=== PATIENT | female | born 1935 | race Caucasian/White ===

== ENCOUNTER 2019-06-14 04:51 | Emergency (ER) | payer MEDICARE, OTHER ==
[~2019-06-14] VITALS: Ht 162 cm; Wt 92.0 kg
[2019-06-14] MEDS ORDERED: NS IV 1000 ML 1,000 ML IV SCH (05:15)
--- NOTE | 2019-06-14 05:20 | ED General ---
General Chief Complaint: Dizziness/Syncope Stated Complaint: DIZZINESS Source of Information: Patient History of Present Illness Date Seen by Provider: Jun 14, 2019 Time Seen by Provider: 05:16 Initial Comments Patient is an 83 y/o female who comes to the ER this morning c/o feeling dizziness. She has been having symptoms over the last two days. She describes episodes of dizziness that last a few seconds. No vertigo. She feels lightheaded. She is currently under treatment for UTI and taking ciprofloxacin. No chest pain, SOB, TERAN, palpitations. No n/v, abdominal pain. No fever, cough, chills. Allergies and Home Medications Allergies Coded Allergies: No Known Drug Allergies (Unverified , 06/14/19) Patient Home Medication List Home Medication List Reviewed: Yes Review of Systems Review of Systems Constitutional: no symptoms reported EENTM: no symptoms reported Respiratory: no symptoms reported Cardiovascular: no symptoms reported Gastrointestinal: no symptoms reported Genitourinary: no symptoms reported Musculoskeletal: no symptoms reported Skin: no symptoms reported Psychiatric/Neurological: See HPI Hematologic/Lymphatic: No Symptoms Reported All Other Systems Reviewed Negative Unless Noted: Yes Past Buqqxtb-Enodwp-Hdxuyg Hx Patient Social History Alcohol Use: Denies Use Recreational Drug Use: No Smoking Status: Never a Smoker 2nd Hand Smoke Exposure: No Recent Foreign Travel: No Contact w/Someone Who Travel: No Recent Hopitalizations: No Physical Abuse: No Sexual Abuse: No Past Medical History Surgeries: No Respiratory: No Cardiac: Yes Hypertension Neurological: No Genitourinary: No Gastrointestinal: No Musculoskeletal: No Endocrine: Yes Diabetes, Non-Insulin dep HEENT: No Cancer: No Psychosocial: No Integumentary: No Blood Disorders: No Physical Exam Vital Signs Vital Signs - First Documented 06/14/19 04:58 Temp 36.3 Pulse 91 Resp 18 B/P (MAP) 176/70 (105) Pulse Ox 95 O2 Delivery Room Air Capillary Refill : Height, Weight, BMI Height: '" Weight: lbs. oz. kg; BMI Method: General Appearance: No Apparent Distress, WD/WN HEENT: PERRL/EOMI, Normal ENT Inspection Neck: Full Range of Motion, Supple Respiratory: Lungs Clear, Normal Breath Sounds Cardiovascular: Regular Rate, Rhythm, No Edema, No Murmur Gastrointestinal: Non Tender, Soft Extremity: Normal Capillary Refill Neurologic/Psychiatric: Alert, Oriented x3, No Motor/Sensory Deficits, Normal M ood/Affect, dry house tender II-XII Norm as Tested Progress/Results/Core Measures Suspected Sepsis SIRS Temperature: Pulse: Respiratory Rate: Laboratory Tests 06/14/19 05:20: White Blood Count 8.1 Blood Pressure / Mean: Laboratory Tests 06/14/19 05:20: Platelet Count 350 Results/Orders Lab Results Laboratory Tests Test 06/14/19 05:20 Range/Units White Blood Count 8.1 4.3-11.0 10^3/uL Red Blood Count 4.20 L 4.35-5.85 10^6/uL Hemoglobin 12.8 11.5-16.0 G/DL Hematocrit 38 35-52 % Mean Corpuscular Volume 91 80-99 FL Mean Corpuscular Hemoglobin 30 25-34 PG Mean Corpuscular Hemoglobin Concent 34 32-36 G/DL Red Cell Distribution Width 12.9 10.0-14.5 % Platelet Count 350 130-400 10^3/uL Mean Platelet Volume 8.6 7.4-10.4 FL Neutrophils (%) (Auto) 53 42-75 % Lymphocytes (%) (Auto) 29 12-44 % Monocytes (%) (Auto) 10 0-12 % Eosinophils (%) (Auto) 7 0-10 % Basophils (%) (Auto) 1 0-10 % Neutrophils # (Auto) 4.3 1.8-7.8 X 10^3 Lymphocytes # (Auto) 2.3 1.0-4.0 X 10^3 Monocytes # (Auto) 0.8 0.0-1.0 X 10^3 Eosinophils # (Auto) 0.6 H 0.0-0.3 10^3/uL Basophils # (Auto) 0.1 0.0-0.1 10^3/uL My Orders Orders - RENE PARIS DO Ekg Tracing (06/14/19 05:08) Cbc With Automated Diff (06/14/19 05:08) Basic Metabolic Panel (06/14/19 05:08) Probnp Fs (06/14/19 05:08) Ed Iv/Invasive Line Start (06/14/19 05:08) Troponin I Fs (06/14/19 05:10) Ns Iv 1000 Ml (Sodium Chloride 0.9%) (06/14/19 05:15) Ct Head Wo (06/14/19 05:22) Urinalysis (06/14/19 05:29) Vital Signs/I&O 06/14/19 04:58 Temp 36.3 Pulse 91 Resp 18 B/P (MAP) 176/70 (105) Pulse Ox 95 O2 Delivery Room Air Capillary Refill : Progress Note : Time: 05:19 Progress Note Patient is seen and examined. No chest pain. c/o episodes of dizziness over the last two days. Currently symptom free. Will check basic labs, EKG, and give IVF's. 05:55: EKG is non-acute. Labs, UA, CT pending. Patient is well-appearing and in no distress. No flu symptoms. IVF's running. Transfer care to Dr. Collier. ECG Initial ECG Impression Date: Jun 14, 2019 Initial ECG Impression Time: 05:24 Initial ECG Rate: 74 Initial ECG Rhythm: Normal Sinus Initial ECG Comparisson: No Previous ECG Available Departure Impression Primary Impression: Dizziness Disposition: 01 HOME, SELF-CARE Condition: Improved Departure-Patient Inst. Referrals: NO,LOCAL PHYSICIAN (PCP/Family) Primary Care Physician RENE PARIS DO Jun 14, 2019 05:20
[2019-06-14 05:26] LABS: EOSINOPHILS % (AUTO) 7 % (0-10); HEMATOCRIT 38 % (35-52); HEMOGLOBIN 12.8 G/DL (11.5-16.0); LYMPHOCYTES % (AUTO) 29 % (12-44); MEAN CORPUSCULAR HEMOGLOBIN 30 PG (25-34); MEAN CORPUSCULAR HGB CONC 34 G/DL (32-36); MEAN CORPUSCULAR VOLUME 91 FL (80-99); MEAN PLATELET VOLUME 8.6 FL (7.4-10.4); MONOCYTES % (AUTO) 10 % (0-12); NEUTROPHILS % (AUTO) 53 % (42-75); PLATELET COUNT 350 10^3/uL (130-400); RED CELL DISTRIBUTION WIDTH 12.9 % (10.0-14.5); WHITE BLOOD COUNT 8.1 10^3/uL (4.3-11.0)
[2019-06-14 05:27] LABS: BASOPHILS # (AUTO) 0.1 10^3/uL (0.0-0.1); BASOPHILS % (AUTO) 1 % (0-10); EOSINOPHILS # (AUTO) 0.6 10^3/uL (0.0-0.3); LYMPHOCYTES # (AUTO) 2.3 X 10^3 (1.0-4.0); MONOCYTES # (AUTO) 0.8 X 10^3 (0.0-1.0); NEUTROPHILS # (AUTO) 4.3 X 10^3 (1.8-7.8)
[2019-06-14 05:47] LABS: CARBON DIOXIDE 24 MMOL/L (21-32); CHLORIDE 98 MMOL/L (98-107); SODIUM 137 MMOL/L (135-145)
[2019-06-14 05:48] LABS: BUN/CREATININE RATIO 21; CALCIUM 9.6 MG/DL (8.5-10.1); CREATININE SERUM 1.56 MG/DL (0.60-1.30); GFR ESTIMATED 32; GLUCOSE 143 MG/DL (70-105)
[2019-06-14 05:51] LABS: BACTERIA,URINE NEGATIVE /HPF; BILIRUBIN,URINE NEGATIVE (NEGATIVE); CLARITY,URINE CLEAR; COLOR,URINE YELLOW; GLUCOSE, URINE (UA) NEGATIVE (NEGATIVE); KETONES,URINE NEGATIVE (NEGATIVE); LEUKOCYTE ESTERASE ,URINE NEGATIVE (NEGATIVE); NITRITE,URINE NEGATIVE (NEGATIVE); PH,URINE 6.5 (5-9); PROTEIN,URINE NEGATIVE (NEGATIVE); SQUAMOUS EPITHELIAL CELL,UR 0-2 /HPF
[2019-06-14 06:31] VITALS: BP 131/59
--- NOTE | 2019-06-14 07:24 | Diagnostic Imaging Report ---
PROCEDURE: CT head without contrast. TECHNIQUE: Multiple contiguous axial images were obtained through the brain without the use of intravenous contrast. Auto Exposure Controls were utilized during the CT exam to meet ALARA standards for radiation dose reduction. DATE: June 14, 2019. COMPARISON: None. INDICATION: 83-year-old female, near syncope. FINDINGS: There is proportional prominence of the ventricles and CSF spaces consistent with severe cerebral volume loss. There is no mass effect or midline shift. There is no acute intracranial hemorrhage. There is no abnormal extra-axial fluid collection. The visualized portions of the paranasal sinuses, mastoid air cells and middle ears are well aerated. IMPRESSION: 1. No identified acute intracranial abnormality. 2. Severe cerebral volume loss. Dictated by: Dictated on workstation # [id number]
== END 2019-06-14 06:33 | disposition home or self-care (01) ==
LOC: ER FS 04:55
DX: R42 Dizziness and giddiness (principal)
CPT/HCPCS: 36415; 70450; 80048; 81000; 83880; 84484; 85025; 93005

== ENCOUNTER 2019-06-21 10:48 | Emergency (ER) | payer MEDICARE, OTHER ==
[~2019-06-21] VITALS: Ht 162 cm; Wt 92.9 kg
[2019-06-21] MEDS ORDERED: NS IV 1000 ML 1,000 ML IV SCH (11:15)
--- NOTE | 2019-06-21 11:16 | ED General ---
General Chief Complaint: Dizziness/Syncope Stated Complaint: DIZZINESS Nursing Triage Note: Saw Dr Reyna on Friday complaining of dizziness and her blood sugar was high. He gave her insulin and told her to drink lots of water over the weekend. She woke up dizzy today and dizziness is worse than before. Feels lightheaded. Denies nausea or vomiting. States she had a head CT last week when she saw Dr Reyna. Nursing Sepsis Screen: No Definite Risk History of Present Illness Date Seen by Provider: Jun 21, 2019 Time Seen by Provider: 11:15 Initial Comments Patient presenting to emergency department for evaluation of dizziness that she says has been going on since last week. She was seen here 7 days ago for a lightheaded sensation improve with IV fluids and went home. She said her symptoms came back and saw Dr. reyna on or Friday and had a CT scan of her head done that was negative and he told her to drink lots of fluids over the weekend. She says today she woke up with the symptoms again and she describes it as a dizzy sensation when she stands and then gets better as she walks. I asked her if she has any movement or spinning sensation with it and she says she does however she says it does not get worse with movements of her head and she has no nausea vomiting diarrhea headache unilateral weakness numbness or tingling. She says she called Dr. reyna's office and they told her to come to the emergency room and to have me call Dr. reyna however we called the office and Dr. Reyna is out of town and is currently on an airplane. She is in no obvious distress with normal vital signs including a heart rate of 90 and a blood pressure 145/77. Allergies and Home Medications Allergies Coded Allergies: No Known Drug Allergies (Unverified , 06/14/19) Patient Home Medication List Home Medication List Reviewed: Yes Review of Systems Review of Systems Constitutional: dizziness EENTM: no symptoms reported Respiratory: no symptoms reported Cardiovascular: no symptoms reported Gastrointestinal: no symptoms reported Genitourinary: no symptoms reported Musculoskeletal: no symptoms reported Skin: no symptoms reported Psychiatric/Neurological: No Symptoms Reported All Other Systems Reviewed Negative Unless Noted: Yes Past Czrhulm-Xofyoc-Myffqb Hx Patient Social History Alcohol Use: Denies Use Recreational Drug Use: No Smoking Status: Never a Smoker 2nd Hand Smoke Exposure: No Recent Foreign Travel: No Contact w/Someone Who Travel: No Recent Infectious Disease Expo: No Recent Hopitalizations: No Physical Abuse: No Sexual Abuse: No Mistreated: No Fear: No Past Medical History Surgeries: No (cataracts) Gallbladder, Hysterectomy Respiratory: No Cardiac: Yes Hypertension Neurological: No Genitourinary: No Gastrointestinal: No Musculoskeletal: No Endocrine: Yes Diabetes, Non-Insulin dep HEENT: No Cancer: No Psychosocial: No Integumentary: No Blood Disorders: No Physical Exam Vital Signs Vital Signs - First Documented 06/21/19 10:59 Temp 37.2 Pulse 102 Resp 22 B/P (MAP) 201/73 (115) Pulse Ox 93 Capillary Refill : Less Than 3 Seconds Height, Weight, BMI Height: '" Weight: lbs. oz. kg; 35.00 BMI Method: General Appearance: No Apparent Distress, WD/WN HEENT: PERRL/EOMI, TMs Normal Neck: Supple Respiratory: Lungs Clear, No Respiratory Distress Cardiovascular: Regular Rate, Rhythm Gastrointestinal: Non Tender, Soft Back: Normal Inspection Extremity: Normal Capillary Refill Neurologic/Psychiatric: Alert, Oriented x3, No Motor/Sensory Deficits, Normal Mood/Affect, slasher runner II-XII Norm as Tested Skin: Warm/Dry Progress/Results/Core Measures Suspected Sepsis Recent Fever Within 48 Hours: No Infection Criteria Present: None New/Unexplained Altered Menta: No Sepsis Screen: No Definite Risk SIRS Temperature: Pulse: 102 Respiratory Rate: 22 Laboratory Tests 06/21/19 11:03: White Blood Count 8.5 Blood Pressure 201 /73 Mean: 115 Laboratory Tests 06/21/19 11:03: Creatinine 1.52H, Platelet Count 400, Total Bilirubin 0.3 Results/Orders Lab Results Laboratory Tests Test 06/21/19 11:03 06/21/19 11:48 Range/Units White Blood Count 8.5 4.3-11.0 10^3/uL Red Blood Count 4.12 L 4.35-5.85 10^6/uL Hemoglobin 12.6 11.5-16.0 G/DL Hematocrit 37 35-52 % Mean Corpuscular Volume 90 80-99 FL Mean Corpuscular Hemoglobin 31 25-34 PG Mean Corpuscular Hemoglobin Concent 34 32-36 G/DL Red Cell Distribution Width 12.9 10.0-14.5 % Platelet Count 400 130-400 10^3/uL Mean Platelet Volume 8.5 7.4-10.4 FL Neutrophils (%) (Auto) 69 42-75 % Lymphocytes (%) (Auto) 18 12-44 % Monocytes (%) (Auto) 7 0-12 % Eosinophils (%) (Auto) 5 0-10 % Basophils (%) (Auto) 1 0-10 % Neutrophils # (Auto) 5.8 1.8-7.8 X 10^3 Lymphocytes # (Auto) 1.5 1.0-4.0 X 10^3 Monocytes # (Auto) 0.6 0.0-1.0 X 10^3 Eosinophils # (Auto) 0.4 H 0.0-0.3 10^3/uL Basophils # (Auto) 0.1 0.0-0.1 10^3/uL Sodium Level 134 L 135-145 MMOL/L Potassium Level 3.9 3.6-5.0 MMOL/L Chloride Level 95 L 98-107 MMOL/L Carbon Dioxide Level 20 L 21-32 MMOL/L Anion Gap 19 H 5-14 MMOL/L Blood Urea Nitrogen 28 H 7-18 MG/DL Creatinine 1.52 H 0.60-1.30 MG/DL Estimat Glomerular Filtration Rate 33 BUN/Creatinine Ratio 18 Glucose Level 217 H 70-105 MG/DL Calcium Level 9.6 8.5-10.1 MG/DL Corrected Calcium 9.6 8.5-10.1 MG/DL Magnesium Level 1.4 L 1.6-2.4 MG/DL Total Bilirubin 0.3 0.1-1.0 MG/DL Aspartate Amino Transf (AST/SGOT) 18 5-34 U/L Alanine Aminotransferase (ALT/SGPT) 13 0-55 U/L Alkaline Phosphatase 93 40-136 U/L Troponin I < 0.30 <0.30 NG/ML Pro-B-Type Natriuretic Peptide 82.2 H <75.0 PG/ML Total Protein 7.5 6.4-8.2 GM/DL Albumin 4.0 3.2-4.5 GM/DL Urine Color YELLOW Urine Clarity CLEAR Urine pH 6.5 5-9 Urine Specific [place] 1.010 L 1.016-1.022 Urine Protein NEGATIVE NEGATIVE Urine Glucose (UA) NEGATIVE NEGATIVE Urine Ketones NEGATIVE NEGATIVE Urine Nitrite NEGATIVE NEGATIVE Urine Bilirubin NEGATIVE NEGATIVE Urine Urobilinogen 0.2 < = 1.0 MG/DL Urine Leukocyte Esterase NEGATIVE NEGATIVE Urine RBC (Auto) NEGATIVE NEGATIVE Urine RBC NONE /HPF Urine WBC 0-2 /HPF Urine Squamous Epithelial Cells 2-5 /HPF Urine Crystals NONE /LPF Urine Bacteria TRACE /HPF Urine Casts NONE /LPF Urine Mucus NEGATIVE /LPF Urine Culture Indicated NO My Orders Orders - MANASA MONTILLA DO Cbc With Automated Diff (06/21/19 11:14) Comprehensive Metabolic Panel (06/21/19 11:14) Ekg Tracing (06/21/19 11:14) Troponin I Fs (06/21/19 11:14) Probnp Fs (06/21/19 11:14) Magnesium (06/21/19 11:14) Ua Culture If Indicated (06/21/19 11:14) Ns Iv 1000 Ml (Sodium Chloride 0.9%) (06/21/19 11:15) Magnesium 1 Gm/100 Ml Ivpb (Magnesium [place] (06/21/19 12:15) Medications Given in ED Current Medications Medications Dose Ordered Sig/Stu Route Start Time Stop Time Status Last Admin Dose Admin Magnesium Sulfate/ Dextrose 100 ml @ 100 mls/hr ONCE ONCE IV 06/21/19 12:15 06/21/19 13:14 06/21/19 12:21 100 MLS/HR Vital Signs/I&O 06/21/19 10:59 Temp 37.2 Pulse 102 Resp 22 B/P (MAP) 201/73 (115) Pulse Ox 93 Capillary Refill : Less Than 3 Seconds Blood Pressure Mean: 115 Progress Note : Progress Note She has a normal gait to the emergency department normal finger to nose and heel to coronel. Neurologic exam is completely normal for me. I do not know if there could be some vertiginous symptoms along with a lightheaded sensation. Certainly medications could cause her to be lightheaded as well as she takes medications for blood pressure. I will check labs EKG and treat with IV fluids and reassess. EKG is the same as last week. She has a RBBB and LAFB, cardiology consultation may be warranted. Labs all basically the same as last week. She said she has been drinking water excessively as Self recommended and she may be overdoing it based off her labs. I do not detect any s/s of ischemia or definite indication for pacemaker. Essentially I have not detected any acute cardiopulmonary process or emergent pathology. I discussed admission given this is 2nd visit for same and she said she would like to go home as she feels much better after IVF with no dizziness or difficulty ambulating in ED. I told her we could try prn meclizine and see if this helps. I told her to make an appointment for next Friday when Dr. Reyna gets back from his vacation and she could come back to emergency Department sooner with any worsening pain dizziness or other general concerns. Patient aware and agreeable with plan for discharge and verbalized understanding of the need for short-term follow-up and strict ED return precautions discussed as above. Departure Impression Primary Impression: Dizziness Disposition: HOME, SELF-CARE Condition: Stable Departure-Patient Inst. Referrals: NO,LOCAL PHYSICIAN (PCP/Family) Primary Care Physician Patient Instructions: Dizziness, Nonvertigo, (DC) Scripts Meclizine HCl (Meclizine HCl) 25 Mg Tablet 25 MG PO TID PRN for VERTIGO, #14 TAB Prov: MANASA MONTILLA DO 06/21/19 MANASA MONTILLA DO Jun 21, 2019 11:16
[2019-06-21 11:43] LABS: HEMATOCRIT 37 % (35-52); HEMOGLOBIN 12.6 G/DL (11.5-16.0); LYMPHOCYTES % (AUTO) 18 % (12-44); MEAN CORPUSCULAR HEMOGLOBIN 31 PG (25-34); MEAN CORPUSCULAR HGB CONC 34 G/DL (32-36); MEAN CORPUSCULAR VOLUME 90 FL (80-99); MEAN PLATELET VOLUME 8.5 FL (7.4-10.4); MONOCYTES % (AUTO) 7 % (0-12); NEUTROPHILS % (AUTO) 69 % (42-75); PLATELET COUNT 400 10^3/uL (130-400); RED CELL DISTRIBUTION WIDTH 12.9 % (10.0-14.5); WHITE BLOOD COUNT 8.5 10^3/uL (4.3-11.0)
[2019-06-21 11:44] LABS: BASOPHILS # (AUTO) 0.1 10^3/uL (0.0-0.1); BASOPHILS % (AUTO) 1 % (0-10); EOSINOPHILS # (AUTO) 0.4 10^3/uL (0.0-0.3); EOSINOPHILS % (AUTO) 5 % (0-10); LYMPHOCYTES # (AUTO) 1.5 X 10^3 (1.0-4.0); MONOCYTES # (AUTO) 0.6 X 10^3 (0.0-1.0); NEUTROPHILS # (AUTO) 5.8 X 10^3 (1.8-7.8)
[2019-06-21 11:53] LABS: ALANINE AMINOTRANSFERASE 13 U/L (0-55); ALKALINE PHOSPHATASE 93 U/L (40-136); BILIRUBIN,TOTAL 0.3 MG/DL (0.1-1.0); BUN/CREATININE RATIO 18; CALCIUM 9.6 MG/DL (8.5-10.1); CARBON DIOXIDE 20 MMOL/L (21-32); CHLORIDE 95 MMOL/L (98-107); CREATININE SERUM 1.52 MG/DL (0.60-1.30); GFR ESTIMATED 33; GLUCOSE 217 MG/DL (70-105); MAGNESIUM 1.4 MG/DL (1.6-2.4); POTASSIUM 3.9 MMOL/L (3.6-5.0); SODIUM 134 MMOL/L (135-145)
[2019-06-21 11:54] LABS: TOTAL PROTEIN 7.5 GM/DL (6.4-8.2)
[2019-06-21 12:15] LABS: BACTERIA,URINE TRACE /HPF; BILIRUBIN,URINE NEGATIVE (NEGATIVE); CLARITY,URINE CLEAR; COLOR,URINE YELLOW; GLUCOSE, URINE (UA) NEGATIVE (NEGATIVE); KETONES,URINE NEGATIVE (NEGATIVE); LEUKOCYTE ESTERASE ,URINE NEGATIVE (NEGATIVE); NITRITE,URINE NEGATIVE (NEGATIVE); PH,URINE 6.5 (5-9); PROTEIN,URINE NEGATIVE (NEGATIVE); WBC,URINE 0-2 /HPF
[2019-06-21] MEDS ORDERED: MAGNESIUM 1 GM/100 ML IVPB 100 ML IV ONE (12:15)
[2019-06-21] MEDS ORDERED: MECL-149 PO (13:05)
[2019-06-21 13:20] VITALS: BP 173/108
== END 2019-06-21 13:25 | disposition home or self-care (01) ==
LOC: EDUNIT# 10:48 → ER FS 10:51
DX: R42 Dizziness and giddiness (principal); E11.9 Type 2 diabetes mellitus without complications
CPT/HCPCS: 36415; 80053; 81000; 83735; 83880; 84484; 85025; 93005; 96374

== ENCOUNTER 2020-02-28 19:42 | Emergency (ER) | payer MEDICARE ==
[~2020-02-28] VITALS: Ht 165.1 cm; Wt 94.7 kg
[~2020-02-28 19:42] MED LIST: MECL-149 PO
--- NOTE | 2020-02-28 19:54 | ED EENT ---
History of Present Illness General Stated Complaint: RT EAR PROBLEMS Source: patient History of Present Illness Date Seen by Provider: Feb 28, 2020 Time Seen by Provider: 19:49 Initial Comments 84-year-old female presents with decreased hearing in her right ear. Patient reports that she's had problems with wax buildup in the past. Sure she was watching TV when she noticed she was having difficulty hearing out of and a fullness in it. No other systemic complaints. Allergies and Home Medications Allergies Coded Allergies: No Known Drug Allergies (Unverified , 06/14/19) Home Medications Meclizine HCl 25 Mg Tablet, 25 MG PO TID PRN for VERTIGO Prescribed by: MANASA MONTILLA on 06/21/19 1305 Ofloxacin 5 Ml Drops, 0.5 ML OT DAILY Prescribed by: DIONISIO LANGE on 02/28/202013 Patient Home Medication List Home Medication List Reviewed: Yes Review of Systems Review of Systems Constitutional: no symptoms reported Eyes: No Symptoms Reported Ears: See HPI Nose: no symptoms reported Mouth: no symptoms reported Throat: no symptoms reported Respiratory: no symptoms reported Cardiovascular: no symptoms reported Gastrointestinal: no symptoms reported Past Xhevjvv-Dufkge-Kensvl Hx Past Med/Social Hx: Reviewed Nursing Past Med/Soc Hx Patient Social History 2nd Hand Smoke Exposure: No Recent Foreign Travel: No Contact w/Someone Who Travel: No Recent Hopitalizations: No Past Medical History Surgeries: No (cataracts) Gallbladder, Hysterectomy Respiratory: No Cardiac: Yes Hypertension Neurological: No Genitourinary: No Gastrointestinal: No Musculoskeletal: No Endocrine: Yes Diabetes, Non-Insulin dep HEENT: No Cancer: No Psychosocial: No Integumentary: No Blood Disorders: No Physical Exam Vital Signs Vital Signs - First Documented 02/28/20 19:48 Temp 36.1 Pulse 70 Resp 18 B/P (MAP) 207/77 (120) Pulse Ox 98 O2 Delivery Room Air Height, Weight, BMI Height: '" Weight: lbs. oz. kg; 35.00 BMI Method: General Appearance: WD/WN Eyes: bilateral eye normal inspection Ears: right ear other (very hard cerebrum impaction ) Nose: normal inspection Neck: supple Cardiovascular: normal peripheral pulses, regular rate, rhythm Respiratory: lungs clear, normal breath sounds Neurologic/Psychiatric: alert, normal mood/affect, oriented x 3 Skin: normal color, warm/dry Procedures/Interventions Ear : Ear Location: Right Foreign Body Removal: Impacted Cerumen Use of: Forceps, Irrigation Progress/Conclusion pt tolerated well, cerumen was very dry and hard, pt had small ear canal abrasion with mild bleeding from cerumen. TM clear Progress/Results/Core Measures Results/Orders Vital Signs/I&O 02/28/20 02/28/20 19:48 20:16 Temp 36.1 36.1 Pulse 70 70 Resp 18 18 B/P (MAP) 207/77 (120) 207/77 (120) Pulse Ox 98 98 O2 Delivery Room Air Departure Impression Primary Impression: Impacted ear wax Qualified Codes: H61.21 - Impacted cerumen, right ear Additional Impression: Abrasion of ear canal Qualified Codes: S00.411A - Abrasion of right ear, initial encounter Disposition: 01 HOME, SELF-CARE Condition: Stable Departure-Patient Inst. Referrals: SELF,AILIN HAAS (PCP/Family) Primary Care Physician Patient Instructions: Ear Wax Impaction (DC) Add. Discharge Instructions: Follow-up with your primary care provider as needed Scripts Ofloxacin (Ofloxacin) 5 Ml Drops 0.5 ML OT DAILY for 7 Days, #1 EACH Prov: DIONISIO LANGE DO 02/28/20 DIONISIO LANGE DO Feb 28, 2020 19:54
[2020-02-28] MEDS ORDERED: OFLO5DRO33 OT (20:14)
[2020-02-28 20:16] VITALS: BP 207/77
== END 2020-02-28 20:23 | disposition home or self-care (01) ==
LOC: EDUNIT# 19:42 → ER FS 19:43
DX: S00.411A Abrasion of right ear, initial encounter (principal); H61.21 Impacted cerumen, right ear; X58.XXXA Exposure to other specified factors, initial encounter
CPT/HCPCS: 69210

== ENCOUNTER 2021-01-28 13:11 | Emergency (ER) | payer MEDICARE ==
[~2021-01-28] VITALS: Ht 165.1 cm; Wt 92.6 kg
[~2021-01-28 13:11] MED LIST changes: +OFLO5DRO33 OT
--- NOTE | 2021-01-28 13:33 | ED Fall/Injury ---
General Chief Complaint: Laceration Stated Complaint: HEAD LAC Source: patient History of Present Illness Date Seen by Provider: Jan 28, 2021 Time Seen by Provider: 13:18 Initial Comments 85-year-old female presenting after having a fall at [facility]. She states that she tried to step over something and ended up tripping instead. She fell and has abrasion to her right knee and a cut to her right forehead. She denies losing consciousness. She has no nausea, vomiting, change in vision, chest pain, abdominal pain, neck pain. She does not take any blood thinners. She is able to ambulate without difficulty. She does not use a walker or any assistive device when she walks. Location Injury Occurred: [facility] Occurred: just prior to arrival Severity: mild Injuries/Pain Location: face, lower extremity (right knee) Context: tripped Loss of Consciousness: no loss of consciousness Modifying Factors: Worse With Movement Associated Symptoms (Fall): No Abdominal Pain, No Chest Pain, No Confusion, No Dizziness; Headache (mild at site of cut ); No Lightheadedness, No Muscle Spasms, No Nausea/Vomiting, No Neck Pain, No Ringing in Ears, No Seizures, No Shortness of Air, No Slurred Speech, No Trouble Walking, No Vision Changes Allergies and Home Medications Allergies Coded Allergies: No Known Drug Allergies (Unverified , 06/14/19) Patient Home Medication List Home Medication List Reviewed: Yes Meclizine HCl (Meclizine HCl) 25 Mg Tablet, 25 MG PO TID PRN for VERTIGO Prescribed by: MANASA MONTILLA on 06/21/19 1305 Ofloxacin (Ofloxacin) 5 Ml Drops, 0.5 ML OT DAILY Prescribed by: DIONISIO LANGE on 02/28/202013 Review of Systems Review of Systems Constitutional: No chills, No dizziness, No fever Eyes: See HPI Ears, Nose, Mouth, Throat: denies ear pain, denies ear discharge, denies nose pain, denies nose discharge, denies epistaxis Respiratory: no symptoms reported Cardiovascular: no symptoms reported Gastrointestinal: no symptoms reported Genitourinary: no symptoms reported Musculoskeletal: joint pain (mild pain to right knee where she has abrasions); No neck pain Skin: see HPI Psychiatric/Neurological: See HPI; Denies Seizure Past Icopxof-Kojqai-Eepybr Hx Patient Social History Tobacco Use?: No Use of E-Cig and/or Vaping dev: No Substance use?: No Alcohol Use?: No Pt feels they are or have been: No Immunizations Up To Date Tetanus Booster (TDap): Unknown First/Initial COVID19 Vaccinat: Not Currently Vaccinated Seasonal Allergies Seasonal Allergies: No Past Medical History Surgeries: Yes (cataracts) Gallbladder, Hysterectomy Respiratory: No Cardiac: Yes Hypertension Neurological: No Genitourinary: No Gastrointestinal: No Musculoskeletal: No Endocrine: Yes Diabetes, Non-Insulin dep HEENT: No Cancer: No Psychosocial: No Integumentary: No Blood Disorders: No Physical Exam Vital Signs Vital Signs - First Documented 01/28/21 13:12 Temp 36.3 Pulse 87 Resp 18 B/P (MAP) 197/72 (113) Pulse Ox 96 O2 Delivery Room Air Capillary Refill : Height, Weight, BMI Height: '" Weight: lbs. oz. kg; 34.00 BMI Method: General Appearance: WD/WN, no apparent distress HEENT: PERRL/EOMI, normal ENT inspection, pharynx normal, other (Negative stein sign, negative raccoon sign, no CSF otorrhea, no CSF rhinorrhea) Neck: non-tender, full range of motion, supple, normal inspection Cardiovascular: normal peripheral pulses, regular rate, rhythm Respiratory: chest non-tender, lungs clear, normal breath sounds Gastrointestinal: normal bowel sounds, non tender, soft, no pulsatile mass Extremities: normal range of motion, normal capillary refill, other (mild tenderness to right knee where she has abrasion) Neurologic/Psychiatric: 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 Abrasions to right knee) Jorge Alberto Coma Score Best Eye Response: (4) Open Spontaneously Best Verbal Response: (5) Oriented Best Motor Response: (6) Obeys Commands [place] Total: 15 Procedures/Interventions Wound Location: Face Wound Length (cm): 4.1 Wound's Depth, Shape: sub Q Wound Explored: clean Other Closure Supply: Wound Adhesive Progress Wound was cleaned with chlohexidine scrub soap and sterile saline. Then using tissue adhesive the wound edges were approximated. She tolerated this well w ithout any immediate complication. Counseled on follow up and return precautions. Progress/Results/Core Measures Results/Orders My Orders Orders - AKILA MONGE MD Dipht,Pertuss(Acell),Tet Adult (Boostrix (01/28/21 13:45) Medications Given in ED Current Medications Medications Dose Ordered Sig/Stu Route Start Time Stop Time Status Last Admin Dose Admin Diphtheria/ Tetanus/Acell Pertussis 0.5 ml ONCE ONCE IM 01/28/21 13:45 01/28/21 13:46 DC 01/28/21 13:47 0.5 ML Vital Signs/I&O 01/28/21 13:12 Temp 36.3 Pulse 87 Resp 18 B/P (MAP) 197/72 (113) Pulse Ox 96 O2 Delivery Room Air Progress Progress Note : Progress Note As patient does not have any blood thinners she is taking and did not lose consciousness will defer on CT scan or imaging. Wounds were cleaned with chlorhexidine scrub soap and sterile saline. The laceration on her forehead was approximated using tissue adhesive. She tolerated this well and had no complications. Ordered a tetanus update. Counseled on follow-up and return precautions. The right knee abrasion was cleaned and dressed with a sterile dr essing Departure Impression Primary Impression: Laceration of skin of forehead Qualified Codes: S01.81XA - Laceration without foreign body of other part of head, initial encounter Additional Impressions: Abrasion, right knee, initial encounter Fall Qualified Codes: W19.XXXA - Unspecified fall, initial encounter Disposition: 01 HOME, SELF-CARE Condition: Stable Departure-Patient Inst. Decision time for Depature: 13:34 Referrals: AILIN SHULTZ MD (PCP/Family) Primary Care Physician Patient Instructions: Preventing Falls ED, Laceration Repair With Glue ED, Abrasions ED Add. Discharge Instructions: Keep wound on forehead dry for next several hours. Then you may wash with soap and water as needed. Do NOT apply any antibiotic ointment or lotions as this will make the glue come off too early. You may need to take Acetaminophen or Ibuprofen to help with soreness and aches from the fall. If having more problems/concerns check back with clinic Keep your head elevated 30-45 degrees to help with swelling and bleeding. You may apply ice 10-15 minutes every few hours as needed for pain, swelling and bruising. All discharge instructions reviewed with patient and/or family. Voiced understanding. AKILA MONGE MD Jan 28, 2021 13:33
[2021-01-28] MEDS ORDERED: TETANUS,DIPTH,PERTUSS P/F (BOOSTRIX) 0.5 ML VIAL IM ONE (13:45)
[2021-01-28 13:51] VITALS: BP 197/72
== END 2021-01-28 13:50 | disposition home or self-care (01) ==
LOC: EDUNIT# 13:11 → ER FS 13:12
DX: S01.81XA Laceration without foreign body of other part of head, initial encounter (principal); S80.211A Abrasion, right knee, initial encounter; I10 Essential (primary) hypertension; E11.9 Type 2 diabetes mellitus without complications; Z23 Encounter for immunization; W01.0XXA Fall on same level from slipping, tripping and stumbling without subsequent striking against object, initial encounter
CPT/HCPCS: 90715

== ENCOUNTER 2021-05-15 13:31 | Emergency (ER) | payer MEDICARE ==
[~2021-05-15] VITALS: Ht 170 cm; Wt 92.0 kg
--- NOTE | 2021-05-15 13:37 | ED General ---
General Stated Complaint: TREMORS; VALERIE LEG PAIN History of Present Illness Date Seen by Provider: May 15, 2021 Time Seen by Provider: 13:34 Initial Comments 85-year-old female presents with some coarse tremors. Patient reports that she was sent in her chair got little dizzy and has some tremors. She reports that resolved prior to EMS arriving. Patient also states that she feels like she is got some bilateral lower extremity weakness and mild pain. This is chronic has been getting worse over the last couple weeks. Patient can ambulate with assist. However she does not have a walker anything at home. Patient denies any cough, fever, chills, nausea, vomiting or urinary symptoms. Allergies and Home Medications Allergies Coded Allergies: No Known Drug Allergies (Unverified , 06/14/19) Patient Home Medication List Home Medication List Reviewed: Yes Meclizine HCl (Meclizine HCl) 25 Mg Tablet, 25 MG PO TID PRN for VERTIGO Prescribed by: MANASA MONTILLA on 06/21/19 1305 Ofloxacin (Ofloxacin) 5 Ml Drops, 0.5 ML OT DAILY Prescribed by: DIONISIO LANGE on 02/28/202013 Review of Systems Review of Systems Constitutional: No chills; dizziness; No fever; weakness Respiratory: No cough, No short of breath Cardiovascular: No chest pain, No palpitations Gastrointestinal: No abdominal pain, No nausea, No vomiting Musculoskeletal: no symptoms reported Skin: no symptoms reported Psychiatric/Neurological: See HPI, Tremors Past Xzhktfy-Mffdun-Hdsoxx Hx Immunizations Up To Date Tetanus Booster (TDap): Unknown First/Initial COVID19 Vaccinat: Not Currently Vaccinated Seasonal Allergies Seasonal Allergies: No Past Medical History Surgeries: Yes (cataracts) Gallbladder, Hysterectomy Respiratory: No Cardiac: Yes Hypertension Neurological: No Genitourinary: No Gastrointestinal: No Musculoskeletal: No Endocrine: Yes Diabetes, Non-Insulin dep HEENT: No Cancer: No Psychosocial: No Integumentary: No Blood Disorders: No Physical Exam Vital Signs Vital Signs - First Documented 05/15/21 13:49 Temp 36.6 Pulse 112 Resp 16 B/P (MAP) 171/79 (109) O2 Delivery Room Air Capillary Refill : Height, Weight, BMI Height: '" Weight: lbs. oz. kg; 33.00 BMI Method: General Appearance: Chronically ill, Obese Respiratory: Lungs Clear, Normal Breath Sounds Cardiovascular: Regular Rate, Rhythm Gastrointestinal: Non Tender, Soft Extremity: Normal Capillary Refill Neurologic/Psychiatric: Alert, Oriented x3, Normal Mood/Affect, Other (Generalized weakness, no gross focal deficit or tremors present at this time) Skin: Normal Color, Warm/Dry Progress/Results/Core Measures Suspected Sepsis SIRS Temperature: Pulse: Respiratory Rate: Laboratory Tests 05/15/21 14:00: White Blood Count 8.3 Blood Pressure / Mean: Laboratory Tests 05/15/21 14:00: Creatinine 1.71H, Platelet Count 369, Total Bilirubin 0.2 Results/Orders Lab Results Laboratory Tests Test 05/15/21 14:00 05/15/21 14:05 Range/Units White Blood Count 8.3 4.3-11.0 10^3/uL Red Blood Count 4.02 3.80-5.11 10^6/uL Hemoglobin 12.7 11.5-16.0 g/dL Hematocrit 38 35-52 % Mean Corpuscular Volume 95 80-99 fL Mean Corpuscular Hemoglobin 32 25-34 pg Mean Corpuscular Hemoglobin Concent 33 32-36 g/dL Red Cell Distribution Width 12.5 10.0-14.5 % Platelet Count 369 130-400 10^3/uL Mean Platelet Volume 8.5 L 9.0-12.2 fL Immature Granulocyte % (Auto) 0 % Neutrophils (%) (Auto) 82 H 42-75 % Lymphocytes (%) (Auto) 5 L 12-44 % Monocytes (%) (Auto) 8 0-12 % Eosinophils (%) (Auto) 4 0-10 % Basophils (%) (Auto) 1 0-10 % Neutrophils # (Auto) 6.8 1.8-7.8 X 10^3 Lymphocytes # (Auto) 0.4 L 1.0-4.0 X 10^3 Monocytes # (Auto) 0.7 0.0-1.0 X 10^3 Eosinophils # (Auto) 0.3 0.0-0.3 10^3/uL Basophils # (Auto) 0.1 0.0-0.1 10^3/uL Immature Granulocyte # (Auto) 0.0 0.0-0.1 10^3/uL Neutrophils % (Manual) 86 % Lymphocytes % (Manual) 7 % Monocytes % (Manual) 2 % Eosinophils % (Manual) 4 % Basophils % (Manual) 0 % Band Neutrophils 1 % Sodium Level 137 135-145 MMOL/L Potassium Level 4.6 3.6-5.0 MMOL/L Chloride Level 99 98-107 MMOL/L Carbon Dioxide Level 24 21-32 MMOL/L Anion Gap 14 5-14 MMOL/L Blood Urea Nitrogen 25 H 7-18 MG/DL Creatinine 1.71 H 0.60-1.30 MG/DL Estimat Glomerular Filtration Rate 29 BUN/Creatinine Ratio 15 Glucose Level 179 H 70-105 MG/DL Calcium Level 9.9 8.5-10.1 MG/DL Corrected Calcium 9.7 8.5-10.1 MG/DL Magnesium Level 1.3 L 1.6-2.4 MG/DL Total Bilirubin 0.2 0.1-1.0 MG/DL Aspartate Amino Transf (AST/SGOT) 51 H 5-34 U/L Alanine Aminotransferase (ALT/SGPT) 27 0-55 U/L Alkaline Phosphatase 95 40-136 U/L C-Reactive Protein 0.90 H <0.50 MG/DL Total Protein 7.5 6.4-8.2 GM/DL Albumin 4.2 3.2-4.5 GM/DL Influenza Type A Antigen NEGATIVE NEGATIVE Influenza Type B Antigen NEGATIVE NEGATIVE Urine Color YELLOW Urine Clarity CLEAR Urine pH 7.0 5-9 Urine Specific [place] 1.015 L 1.016-1.022 Urine Protein NEGATIVE NEGATIVE Urine Glucose (UA) NEGATIVE NEGATIVE Urine Ketones NEGATIVE NEGATIVE Urine Nitrite NEGATIVE NEGATIVE Urine Bilirubin NEGATIVE NEGATIVE Urine Urobilinogen 0.2 < = 1.0 MG/DL Urine Leukocyte Esterase 1+ H NEGATIVE Urine RBC (Auto) TRACE-I H NEGATIVE Urine RBC NONE /HPF Urine WBC 2-5 /HPF Urine Squamous Epithelial Cells 0-2 /HPF Urine Crystals NONE /LPF Urine Bacteria TRACE /HPF Urine Casts NONE /LPF Urine Mucus NEGATIVE /LPF Urine Culture Indicated NO My Orders Orders - DIONISIO LANGE DO Cbc With Automated Diff (05/15/21 13:37) Comprehensive Metabolic Panel (05/15/21 13:37) Magnesium (05/15/21 13:37) Ua Culture If Indicated (05/15/21 13:37) Crp Fs (05/15/21 13:37) Influenza A & B Antigens (05/15/21 13:37) Manual Differential (05/15/21 14:00) Vital Signs/I&O 05/15/21 13:49 Temp 36.6 Pulse 112 Resp 16 B/P (MAP) 171/79 (109) O2 Delivery Room Air Capillary Refill : Progress Note : Progress Note Patient reports that she was tired of waiting on her lab results and left AMA. Departure Impression Primary Impression: Dizziness Disposition: 01 HOME, SELF-CARE Condition: Against Medical Advice Departure-Patient Inst. Referrals: SELF,AILIN HAAS (PCP/Family) Primary Care Physician DIONISIO LANGE DO May 15, 2021 13:37
[2021-05-15 13:49] VITALS: BP 171/79
[2021-05-15 14:10] LABS: BASOPHILS % (AUTO) 1 % (0-10); EOSINOPHILS % (AUTO) 4 % (0-10); HEMATOCRIT 38 % (35-52); HEMOGLOBIN 12.7 g/dL (11.5-16.0); LYMPHOCYTES % (AUTO) 5 % (12-44); MEAN CORPUSCULAR HEMOGLOBIN 32 pg (25-34); MEAN CORPUSCULAR HGB CONC 33 g/dL (32-36); MEAN CORPUSCULAR VOLUME 95 fL (80-99); MEAN PLATELET VOLUME 8.5 fL (9.0-12.2); MONOCYTES % (AUTO) 8 % (0-12); NEUTROPHILS % (AUTO) 82 % (42-75); PLATELET COUNT 369 10^3/uL (130-400); WHITE BLOOD COUNT 8.3 10^3/uL (4.3-11.0)
[2021-05-15 14:11] LABS: BASOPHILS # (AUTO) 0.1 10^3/uL (0.0-0.1); EOSINOPHILS # (AUTO) 0.3 10^3/uL (0.0-0.3); LYMPHOCYTES # (AUTO) 0.4 X 10^3 (1.0-4.0); MONOCYTES # (AUTO) 0.7 X 10^3 (0.0-1.0); NEUTROPHILS # (AUTO) 6.8 X 10^3 (1.8-7.8)
[2021-05-15 14:33] LABS: BILIRUBIN,URINE NEGATIVE (NEGATIVE); CLARITY,URINE CLEAR; COLOR,URINE YELLOW; GLUCOSE, URINE (UA) NEGATIVE (NEGATIVE); KETONES,URINE NEGATIVE (NEGATIVE); LEUKOCYTE ESTERASE ,URINE 1+ (NEGATIVE); NITRITE,URINE NEGATIVE (NEGATIVE); PROTEIN,URINE NEGATIVE (NEGATIVE)
[2021-05-15 14:47] LABS: BAND NEUTROPHILS 1 %; BASOPHILS % (MANUAL) 0 %; EOSINOPHILS % (MANUAL) 4 %; LYMPHOCYTES % (MANUAL) 7 %; MONOCYTES % (MANUAL) 2 %; NEUTROPHILS % (MANUAL) 86 %
[2021-05-15 14:49] LABS: POTASSIUM 4.6 MMOL/L (3.6-5.0)
[2021-05-15 14:50] LABS: BILIRUBIN,TOTAL 0.2 MG/DL (0.1-1.0); CALCIUM 9.9 MG/DL (8.5-10.1); CREATININE SERUM 1.71 MG/DL (0.60-1.30); MAGNESIUM 1.3 MG/DL (1.6-2.4); TOTAL PROTEIN 7.5 GM/DL (6.4-8.2)
[2021-05-15 14:51] LABS: ALBUMIN 4.2 GM/DL (3.2-4.5)
[2021-05-15 15:04] LABS: BACTERIA,URINE TRACE /HPF; SQUAMOUS EPITHELIAL CELL,UR 0-2 /HPF
== END 2021-05-15 14:45 | disposition left against medical advice (07) ==
LOC: EDUNIT# 13:31 → ER FS 13:32
DX: R42 Dizziness and giddiness (principal); I10 Essential (primary) hypertension; E11.9 Type 2 diabetes mellitus without complications; E66.9 Obesity, unspecified; Z68.33 Body mass index [BMI] 33.0-33.9, adult
CPT/HCPCS: 36415; 80053; 81000; 83735; 85007; 85027; 86141; 87804

== ENCOUNTER 2021-12-16 09:12 | Emergency (ER) | payer MEDICARE ==
[~2021-12-16] VITALS: Ht 165.1 cm; Wt 86.2 kg
[2021-12-16 09:43] LABS: BILIRUBIN,URINE NEGATIVE (NEGATIVE); CLARITY,URINE CLOUDY; COLOR,URINE YELLOW; GLUCOSE, URINE (UA) NEGATIVE (NEGATIVE); KETONES,URINE NEGATIVE (NEGATIVE); LEUKOCYTE ESTERASE ,URINE 2+ (NEGATIVE); NITRITE,URINE POSITIVE (NEGATIVE); PROTEIN,URINE 1+ (NEGATIVE); WBC,URINE TNTC /HPF
--- NOTE | 2021-12-16 09:45 | ED General ---
General Chief Complaint: Dizziness/Syncope Stated Complaint: CAN'T WALK STRAIGHT/ABD PAIN/RLQ-SHARIF Nursing Triage Note: Patient reports her son called the ambulance for her this morning because she was feeling dizzy and having abdominal pain. Patient denies dizziness and abdominal pain on arrival to the ED. She reports she fell recently, large yellow bruising and abrasion to right forehead. Source of Information: Patient, EMS History of Present Illness Date Seen by Provider: Dec 16, 2021 Time Seen by Provider: 09:12 Initial Comments 86 yo female presenting by EMS from home. She had no complaint on arrival to the ED but they had been called by her grandson because she had tingling in RLQ and was not walking straight. She walked to the cot for EMS without difficulty. She denies any complaints here in the ED and states they just came to pick her up and bring her to the ED. She denies headache, chest pain, nausea, vomiting, constipation, diarrhea, fever, chills, pain with urination. Associated Systoms: No Chest Pain, No Cough, No Diaphoresis, No Fever/Chills, No Headaches, No Loss of Appetite, No Malaise, No Nausea/Vomiting, No Rash, No Seizure, No Shortness of Air, No Syncope Allergies and Home Medications Allergies Coded Allergies: No Known Drug Allergies (Unverified , 06/14/19) Patient Home Medication List Home Medication List Reviewed: Yes Ciprofloxacin HCl (Ciprofloxacin HCl) 500 Mg Tablet, 500 MG PO BID Prescribed by: AKILA MONGE on 12/16/21 1017 Meclizine HCl (Meclizine HCl) 25 Mg Tablet, 25 MG PO TID PRN for VERTIGO Prescribed by: MANASA MONTILLA on 06/21/19 1305 Ofloxacin (Ofloxacin) 5 Ml Drops, 0.5 ML OT DAILY Prescribed by: DIONISIO LANGE on 02/28/202013 Review of Systems Review of Systems Constitutional: No chills, No fever EENTM: no symptoms reported Respiratory: no symptoms reported Cardiovascular: no symptoms reported Gastrointestinal: no symptoms reported Genitourinary: no symptoms reported Musculoskeletal: no symptoms reported Skin: no symptoms reported Psychiatric/Neurological: No Symptoms Reported Past Rmucbzk-Ksktgo-Pwzsba Hx Patient Social History Tobacco Use?: No Use of E-Cig and/or Vaping dev: No Substance use?: No Alcohol Use?: No Pt feels they are or have been: No Immunizations Up To Date Tetanus Booster (TDap): Unknown First/Initial COVID19 Vaccinat: Not Currently Vaccinated Second COVID19 Vaccination Solomon: Not Currently Vaccinated Third COVID19 Vaccination Date: Not Currently Vaccinated Seasonal Allergies Seasonal Allergies: No Past Medical History Surgery/Hospitalization HX: HTN; DM Surgeries: Yes (cataracts) Gallbladder, Hysterectomy Respiratory: No Cardiac: Yes Hypertension Neurological: No Genitourinary: No Gastrointestinal: No Musculoskeletal: No Endocrine: Yes Diabetes, Non-Insulin dep HEENT: No Cancer: No Psychosocial: No Integumentary: No Blood Disorders: No Physical Exam Vital Signs Vital Signs - First Documented 12/16/21 09:14 Temp 36.0 Pulse 59 Resp 18 B/P (MAP) 159/69 (99) Pulse Ox 96 O2 Delivery Room Air Capillary Refill : Less Than 3 Seconds Height, Weight, BMI Height: '" Weight: lbs. oz. kg; 31.00 BMI Method: General Appearance: No Apparent Distress, WD/WN HEENT: PERRL/EOMI, Pharynx Normal; No Photophobia; Other (Negative stein sign, negative raccoon sign, no CSF otorrhea, no CSF rhinorrhea. 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 Norm as Tested Skin: Warm/Dry, Other (healing bruise and abrasion to right forehead) Progress/Results/Core Measures Suspected Sepsis SIRS Temperature: Pulse: 59 Respiratory Rate: 18 Blood Pressure 159 /69 Mean: 99 Results/Orders Lab Results Laboratory Tests Test 12/16/21 09:30 Range/Units Urine Color YELLOW Urine Clarity CLOUDY Urine pH 6.0 5-9 Urine Specific [place] 1.010 L 1.016-1.022 Urine Protein 1+ H NEGATIVE Urine Glucose (UA) NEGATIVE NEGATIVE Urine Ketones NEGATIVE NEGATIVE Urine Nitrite POSITIVE H NEGATIVE Urine Bilirubin NEGATIVE NEGATIVE Urine Urobilinogen 0.2 < = 1.0 MG/DL Urine Leukocyte Esterase 2+ H NEGATIVE Urine RBC (Auto) 2+ H NEGATIVE Urine RBC /HPF Urine WBC TNTC H /HPF Urine Crystals NONE /LPF Urine Bacteria /HPF Urine Casts NONE /LPF Urine Mucus NEGATIVE /LPF Urine Culture Indicated YES My Orders Orders - AKILA MONGE MD Ua Culture If Indicated (12/16/21 09:39) Urine Culture (12/16/21 09:30) Ceftriaxone (Rocephin) (12/16/21 10:19) Lidocaine 1% Inj 20 Ml (Xylocaine 1% Inj (12/16/21 10:30) Lidocaine 1% Inj 50 Ml (Xylocaine 1% Inj (12/16/21 10:34) Medications Given in ED Current Medications Medications Dose Ordered Sig/Stu Route Start Time Stop Time Status Last Admin Dose Admin Lidocaine HCl 2.1 ml ONCE ONCE INJ 12/16/21 10:30 12/16/21 10:31 DC 12/16/21 10:38 2.1 ML Vital Signs/I&O 12/16/21 09:14 Temp 36.0 Pulse 59 Resp 18 B/P (MAP) 159/69 (99) Pulse Ox 96 O2 Delivery Room Air Capillary Refill : Less Than 3 Seconds Blood Pressure Mean: 99 Progress Note #1: Progress Note obtain UA since she had to urinate while here in ED and EMS had been told she had abdominal pain. Patient continued to deny pain or complaints here in ED. Progress Note #2: Progress Note UA shows signs of UTI. Will treat with Rocephin IM shot and continue with oral antibiotic for UTI. Departure Impression Primary Impression: Acute cystitis without hematuria Disposition: 01 HOME, SELF-CARE Condition: Stable Departure-Patient Inst. Decision time for Depature: 10:18 Referrals: SELF,AILIN HAAS (PCP/Family) Primary Care Physician Patient Instructions: Urinary Tract Infection, Adult ED Add. Discharge Instructions: Stay well hydrated and drink more water. You were given a shot of antibiotics for today. You will need to berry picker prescription from [facility] tomorrow to continue the antibiotics to treat for UTI. Follow up with your regular provider for continued concerns. All discharge instructions reviewed with patient and/or family. Voiced understanding. Scripts Ciprofloxacin HCl (Ciprofloxacin HCl) 500 Mg Tablet 500 MG PO BID for UTI for 5 Days, #10 TAB 0 Refills Prov: AKILA MONGE MD 12/16/21 AKILA MONGE MD Dec 16, 2021 09:45
[2021-12-16] MEDS ORDERED: CIPR500T5 PO ×2 (10:17→11:35)
[2021-12-16] MEDS ORDERED: cefTRIAXone 1,000 MG VIAL IM STA (10:19)
[2021-12-16] MEDS ORDERED: LIDOCAINE 1% INJ 20 ML VIAL INJ ONE (10:30)
[2021-12-16] MEDS ORDERED: LIDOCAINE 1% INJ 50 ML (XYLOCAINE) VIAL ONE (10:34)
[2021-12-16 11:00] VITALS: BP 167/85
== END 2021-12-16 11:40 | disposition home or self-care (01) ==
LOC: EDUNIT# 09:12 → ER FS 09:14
DX: N30.00 Acute cystitis without hematuria (principal); Z28.310 Unvaccinated for COVID-19
CPT/HCPCS: 81000; 87077; 87088; 99284

== ENCOUNTER 2022-04-12 04:22 | Emergency (ER) | payer MEDICARE ==
[~2022-04-12 04:22] MED LIST changes: +CIPR500T5 PO
[2022-04-12 05:10] LABS: HEMATOCRIT 36 % (35-52); HEMOGLOBIN 12.3 g/dL (11.5-16.0); MEAN CORPUSCULAR HEMOGLOBIN 29 pg (25-34); MEAN CORPUSCULAR HGB CONC 34 g/dL (32-36); MEAN CORPUSCULAR VOLUME 85 fL (80-99); MEAN PLATELET VOLUME 8.4 fL (9.0-12.2); PLATELET COUNT 497 10^3/uL (130-400); WHITE BLOOD COUNT 9.3 10^3/uL (4.3-11.0)
[2022-04-12 05:11] LABS: BASOPHILS % (AUTO) 0 % (0-10); EOSINOPHILS # (AUTO) 0.1 10^3/uL (0.0-0.3); EOSINOPHILS % (AUTO) 1 % (0-10); LYMPHOCYTES # (AUTO) 1.2 X 10^3 (1.0-4.0); LYMPHOCYTES % (AUTO) 12 % (12-44); MONOCYTES # (AUTO) 0.9 X 10^3 (0.0-1.0); MONOCYTES % (AUTO) 10 % (0-12); NEUTROPHILS # (AUTO) 7.2 X 10^3 (1.8-7.8); NEUTROPHILS % (AUTO) 77 % (42-75)
[2022-04-12 05:28] LABS: CALCIUM 9.3 MG/DL (8.5-10.1); CREATININE SERUM 1.39 MG/DL (0.60-1.30); POTASSIUM 3.5 MMOL/L (3.6-5.0)
[2022-04-12 05:41] LABS: ERYTHROCYTE SEDIMENTATION RATE 64 MM/HR (0-30)
[2022-04-12] MEDS ORDERED: LIDOCAINE 1% INJ 20 ML VIAL INJ ONE (06:00)
--- NOTE | 2022-04-12 06:23 | Diagnostic Imaging Report ---
PROCEDURE: CT right lower extremity without contrast. TECHNIQUE: Axially acquired CT was obtained through the right lower extremity without intravenous contrast. Coronal and sagittal reformations were also performed. Auto Exposure Controls were utilized during the CT exam to meet ALARA standards for radiation dose reduction. INDICATION: Right knee pain. COMPARISON: Right knee radiographs 04/12/2022. FINDINGS: Examination is limited by motion at the level of the femoral condyles. No fractures are identified. Ihnllaev-ui-bqertibr tricompartmental degenerative changes in the right knee are greatest in the medial compartment where there is joint space loss, sclerosis, osteophyte and subchondral cystic formation. Large calcified intra-articular loose body. Large right knee joint effusion. Advanced atherosclerotic calcifications. IMPRESSION: 1. Examination limited by motion. 2. 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 There is also a large calcified intra-articular loose body. 3. Large right knee joint effusion. Dictated by: Dictated on workstation # [id number]
--- NOTE | 2022-04-12 06:39 | ED Lower Extremity ---
General Chief Complaint: Lower Extremity Stated Complaint: FALL Nursing Triage Note: Pt brought in by ems with the complaint of right knee pain. Pt states that her knee has been hurting for a while and she was taking Advil for it, but ran out of pills. Source: patient, RN/MD Exam Limitations: no limitations (LONI NICOLAS MD) History of Present Illness Date Seen by Provider: Apr 12, 2022 Time Seen by Provider: 04:30 Initial Comments This 86-year-old woman presents to the emergency room with complaints of right knee pain and swelling that has become progressively worse over the past 1 to 2 months. She is still able to ambulate but she has significant joint stiffness a nd pain with palpation and range of motion. The right knee is warm to the touch and tender to palpation. She denies any systemic symptoms such as fever or chills. She lives alone and activated EMS as she does not drive. Her grandson previously lived with her but recently moved out. She had been taking Advil for the pain but ran out. She denies other medical problems but her medication filling record would suggest otherwise as she has lisinopril, metformin, and other prescribed medications. Dr. Reyna is her physician of record. (LONI NICOLAS MD) Allergies and Home Medications Allergies Coded Allergies: No Known Drug Allergies (Unverified , 06/14/19) Patient Home Medication List Home Medication List Reviewed: Yes (LONI NICOLAS MD) Ciprofloxacin HCl (Ciprofloxacin HCl) 500 Mg Tablet, 500 MG PO BID Prescribed by: AKILA MONGE on 12/16/21 1135 Meclizine HCl (Meclizine HCl) 25 Mg Tablet, 25 MG PO TID PRN for VERTIGO Prescribed by: MANASA MONTILLA on 06/21/19 1305 Ofloxacin (Ofloxacin) 5 Ml Drops, 0.5 ML OT DAILY Prescribed by: DIONISIO LANGE on 02/28/202013 Review of Systems Constitutional: no symptoms reported EENTM: no symptoms reported Respiratory: no symptoms reported Cardiovascular: no symptoms reported Gastrointestinal: no symptoms reported Genitourinary: no symptoms reported : No Musculoskeletal: see HPI Skin: no symptoms reported Psychiatric/Neurological: No Symptoms Reported (LONI NICOLAS MD) Past Wskmoce-Fjukkb-Eqrwap Hx Patient Social History Tobacco Use?: No Use of E-Cig and/or Vaping dev: No Substance use?: No Alcohol Use?: No Pt feels they are or have been: No (LONI NICOLAS MD) Immunizations Up To Date Tetanus Booster (TDap): Unknown First/Initial COVID19 Vaccinat: Not Currently Vaccinated Second COVID19 Vaccination Solomon: Not Currently Vaccinated Third COVID19 Vaccination Date: Not Currently Vaccinated (LONI NICOLAS MD) Seasonal Allergies Seasonal Allergies: No (LONI NICOLAS MD) Past Medical History Surgery/Hospitalization HX: HTN; DM Surgeries: Yes (cataracts) Gallbladder, Hysterectomy Respiratory: No Cardiac: Yes Hypertension Neurological: No Genitourinary: No Gastrointestinal: No Musculoskeletal: No Endocrine: Yes Diabetes, Non-Insulin dep HEENT: No Cancer: No Psychosocial: No Integumentary: No Blood Disorders: No (LONI NICOLAS MD) Physical Exam Vital Signs Vital Signs - First Documented 04/12/22 04:22 Temp 37.1 Pulse 94 Resp 18 B/P (MAP) 153/81 (105) Pulse Ox 97 O2 Delivery Room Air (LANGE,DIONISIO L DO) Vital Signs Capillary Refill : Less Than 3 Seconds (LONI NICOLAS MD) Height, Weight, BMI Height: '" Weight: lbs. oz. kg; 31.00 BMI Method: General Appearance: WD/WN, no apparent distress HEENT: normal ENT inspection Neck: normal inspection Cardiovascular: regular rate, rhythm, no edema, no murmur Respiratory: lungs clear, normal breath sounds, no respiratory distress Gastrointestinal: non tender, soft Knees: left knee non-tender, left knee no evidence of injury; right knee joint effusion, right knee pain, right knee swelling, right knee other (Pain with palpation and range of motion. Stiffness and severely limited range of motion. Distal exam unremarkable except for some swelling) Ankles: bilateral ankle swelling (Pitting edema mild to moderate bilateral) Feet: bilateral foot swelling (Pitting edema mild to moderate bilaterally. Pedal pulse palpable.) Neurologic/Tendon: normal sensation, normal motor functions Neurologic/Psychiatric: no motor/sensory deficits, alert, normal mood/affect, oriented x 3 Skin: normal color, warm/dry (LONI NICOLAS MD) Procedures/Interventions Progress Joint aspiration: Risks and benefits were reviewed with the patient. Risks described included pain, bleeding, and risk of infection. Benefits included ability to analyze synovial fluid to determine if there is arthritis, pseudogout, gout, or infection. Verbal consent was obtained. Skin was cleaned with alcohol on the lateral superior aspect of the right knee. Local anesthesia was provided with approximately 1 mL of lidocaine. Skin was then prepped with Betadine. Sterile technique was used to introduce an 18-gauge needle into the synovial space using the lateral superior approach. Patient was in the seated position in a wheelchair. I was able to aspirate about 15 mL of cloudy, green-tinged fluid from the knee. After withdrawal of the needle additional synovial fluid leaked from the puncture site. Fluid was sent to lab for processing. Patient tolerated the procedure well. Sterile gauze was applied over the puncture site. (LONI NICLOAS MD) Progress/Results/Core Measures Results/Orders Lab Results Laboratory Tests Test 04/12/22 05:00 04/12/22 06:14 Range/Units White Blood Count 9.3 4.3-11.0 10^3/uL Red Blood Count 4.24 3.80-5.11 10^6/uL Hemoglobin 12.3 11.5-16.0 g/dL Hematocrit 36 35-52 % Mean Corpuscular Volume 85 80-99 fL Mean Corpuscular Hemoglobin 29 25-34 pg Mean Corpuscular Hemoglobin Concent 34 32-36 g/dL Red Cell Distribution Width 12.3 10.0-14.5 % Platelet Count 497 H 130-400 10^3/uL Mean Platelet Volume 8.4 L 9.0-12.2 fL Immature Granulocyte % (Auto) 0 % Neutrophils (%) (Auto) 77 H 42-75 % Lymphocytes (%) (Auto) 12 12-44 % Monocytes (%) (Auto) 10 0-12 % Eosinophils (%) (Auto) 1 0-10 % Basophils (%) (Auto) 0 0-10 % Neutrophils # (Auto) 7.2 1.8-7.8 X 10^3 Lymphocytes # (Auto) 1.2 1.0-4.0 X 10^3 Monocytes # (Auto) 0.9 0.0-1.0 X 10^3 Eosinophils # (Auto) 0.1 0.0-0.3 10^3/uL Basophils # (Auto) 0.0 0.0-0.1 10^3/uL Immature Granulocyte # (Auto) 0.0 0.0-0.1 10^3/uL Erythrocyte Sedimentation Rate 64 H 0-30 MM/HR Sodium Level 136 135-145 MMOL/L Potassium Level 3.5 L 3.6-5.0 MMOL/L Chloride Level 97 L 98-107 MMOL/L Carbon Dioxide Level 26 21-32 MMOL/L Anion Gap 13 5-14 MMOL/L Blood Urea Nitrogen 15 7-18 MG/DL Creatinine 1.39 H 0.60-1.30 MG/DL Estimat Glomerular Filtration Rate 37 BUN/Creatinine Ratio 11 Glucose Level 138 H 70-105 MG/DL Uric Acid 6.3 2.6-7.2 MG/DL Calcium Level 9.3 8.5-10.1 MG/DL C-Reactive Protein 18.95 H <0.50 MG/DL (LANGE,DIONISIO L DO) Medications Given in ED Current Medications Medications Dose Ordered Sig/Stu Route Start Time Stop Time Status Last Admin Dose Admin Lidocaine HCl 20 ml ONCE ONCE INJ 04/12/22 06:00 04/12/22 06:01 DC 04/12/22 05:54 20 ML (LANGE,DIONISIO L DO) Vital Signs/I&O 04/12/22 04/12/22 04:22 08:46 Temp 37.1 Pulse 94 84 Resp 18 16 B/P (MAP) 153/81 (105) 136/72 Pulse Ox 97 97 O2 Delivery Room Air Room Air (LANGE,DIONISIO L DO) Blood Pressure Mean: 105 Progress Progress Note : Time: 06:39 Progress Note On exam patient's knee was quite warm to the touch relative to the left knee. She also had extremely limited range of motion and significant tenderness to palpation. Joint infection was considered. Labs revealed elevated CRP and ESR. With informed consent the right knee was aspirated. Cloudy synovial fluid was sent to lab for processing. Since patient does not seem septic at this time, I am deferring decision regarding antibiotics until availability of microscopic results later this morning. Patient declined pain medication at this time. (LONI NICOLAS MD) Progress Note : Time: 08:49 Progress Note Patient no bacteria on gram stain. Patient's likely chronic inflammatory state such as pseudogout or reactive arthritis. At this time antibiotics are not indicated. Her symptoms have been going on for couple months. We will have her start ibuprofen twice daily follow-up with her primary care provider. She is stable and discharged home (DIONISIO LANGE DO) Diagnostic Imaging Diagonstic Imaging: CT Plain Films/CT/US/NM/MRI: knee Comments CT scan viewed by me. There seems to be advanced arthritis and a large effusion by my interpretation. The CT report below concurs with that determination. See report below: NAME: KIAH DUMONT [facility] REC#: [id number] PT STATUS: REG ER : 1935 PHYSICIAN: LONI NICOLAS MD ADMIT DATE: 04/12/22/ER FS Draft Date of Exam:04/12/22 CT EXTREMITY LOWER RIGHT WO PROCEDURE: CT right lower extremity without contrast. TECHNIQUE: Axially acquired CT was obtained through the right lower extremity without intravenous contrast. Coronal and sagittal reformations were also performed. Auto Exposure Controls were utilized during the CT exam to meet ALARA standards for radiation dose reduction. INDICATION: Right knee pain. COMPARISON: Right knee radiographs 04/12/2022. FINDINGS: Examination is limited by motion at the level of the femoral condyles. No fractures are identified. Edlueatf-xs-qnkkcmpk tricompartmental degenerative changes in the right knee are greatest in the medial compartment where there is joint space loss, sclerosis, osteophyte and subchondral cystic formation. Large calcified intra-articular loose body. Large right knee joint effusion. Advanced atherosclerotic calcifications. IMPRESSION: 1. Examination limited by motion. 2. 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 There is also a large calcified intra-articular loose body. 3. Large right knee joint effusion. Dictated on workstation # [id number] Dict: 04/12/2217 Trans: 04/12/22 0623 [facility] [id number] Interpreted by: TIM PAYNE MD (LONI NICOLAS MD) Departure Impression Primary Impression: Reactive arthritis of knee Qualified Codes: M02.369 - Alanna's disease, unspecified knee Additional Impression: Pseudogout Disposition: 01 HOME, SELF-CARE Condition: Stable Departure-Patient Inst. Referrals: AILIN REYNA MD (PCP/Family) Primary Care Physician Patient Instructions: Reactive Arthritis, Calcium Pyrophosphate Deposition Disease Add. Discharge Instructions: Ibuprofen 400 mg 2-3 times daily. Follow-up with your primary care provider in 1 week for recheck of your symptoms. All discharge instructions reviewed with patient and/or family. Voiced understanding. Copy Copies To 1: AILIN REYNA MD, JOSHUA T MD Apr 12, 2022 06:39 DIONISIO LANGE DO Apr 12, 2022 08:50
[2022-04-12 08:16] LABS: URIC ACID 6.3 MG/DL (2.6-7.2)
[2022-04-12 08:46] VITALS: BP 136/72
--- NOTE | 2022-04-12 08:51 | Diagnostic Imaging Report ---
INDICATION: Right knee pain. COMPARISON: None FINDINGS: Multiple radiographic views of the right knee were obtained. There is a large suprapatellar joint effusion, but underlying osseous structures are intact. There are mlneocfx-ph-golukkzu osteoarthritic changes. This is greatest involving the medial tibiofemoral compartment where there is severe joint space narrowing with sclerotic remodeling to the articular surfaces and osteophyte formations. Large calcified intra-articular loose body is also present. Joint spaces are otherwise maintained. No unexpected radiopaque foreign bodies are seen. There is advanced calcified arteriosclerosis. IMPRESSION: 1. Moderate suprapatellar joint effusion, but no evidence of acute fracture or dislocation of the right knee. 2. Zcxqfxhb-wi-idpqkjdb degenerative changes. Dictated by: Dictated on workstation # [id number]
[2022-04-12 10:02] LABS: BODY FLUID APPEARENCE MOD CLDY; BODY FLUID COLOR YELLOW; BODY FLUID SOURCE SYNOVIAL
[2022-04-12 10:03] LABS: LYMPHOCYTES,BODY FLUID 2 %
[2022-04-12 10:07] LABS: BODY FLUID RBC COUNT 350 /uL; BODY FLUID WBC TOTAL COUNT 27100 /uL
== END 2022-04-12 08:51 | disposition home or self-care (01) ==
LOC: EDUNIT# 04:22 → ER FS 04:25
DX: M13.861 Other specified arthritis, right knee (principal); M10.9 Gout, unspecified; Z28.310 Unvaccinated for COVID-19
CPT/HCPCS: 36415; 73562; 73700; 80048; 84550; 85025; 85652; 86141; 87070; 87205; 89051; 89060